=== PATIENT | female | born 1950 | race Caucasian/White ===

== ENCOUNTER 2021-03-05 06:12 | Inpatient (IN) ==
--- NOTE | 2020-11-12 15:50 | PAT Medication Instructions ---
Medication Instructions Date of Service November 12, 2020 Home Medications albuterol sulfate 90 mcg/actuation aerosol inhaler 1 inh INHALATION QID PRN atorvastatin 10 mg tablet 10 mg PO QPM biotin 1 mg capsule 1 mg PO QAM calcium 500 mg tablet 500 mg PO QAM metformin 500 mg tablet 500 mg PO QAM omega-3 fatty acids 1,000 mg PO QAM omeprazole 20 mg tablet,delayed release 20 mg PO QAM STOP taking 2 weeks before surgery biotin 1 mg capsule 1 mg PO QAM omega-3 fatty acids 1,000 mg PO QAM DO NOT take the morning of surgery calcium 500 mg tablet 500 mg PO QAM metformin 500 mg tablet 500 mg PO QAM Take morning of surgery With a small sip of water, OTHERWISE NOTHING TO EAT OR DRINK AFTER MIDNIGHT: albuterol sulfate 90 mcg/actuation aerosol inhaler 1 inh INHALATION QID PRN (use if needed; please bring with you to hospital day of surgery if possible) omeprazole 20 mg tablet,delayed release 20 mg PO QAM Take evening before surgery albuterol sulfate 90 mcg/actuation aerosol inhaler 1 inh INHALATION QID PRN (if needed) atorvastatin 10 mg tablet 10 mg PO QPM Other Notes If you have any questions please call us at [phone] or [phone] or [phone] or [phone]
--- NOTE | 2020-11-14 10:53 | Anesthesiology Consultation ---
Date of Service November 14, 2020 Assessment & Plan (1) Encounter for pre-operative examination: Chart Review Chart Review: Acceptable Risk for Surgery (pending preop Covid testing results ) and Patient seen in Pre Admission Testing - Check BSG AM DOS Per PAT appt on 11/14/20, patient denies any recent travel or large group activities. No known Covid positive contacts or Covid related symptoms. No known Covid infection in the past 90 days. Pt is vaccinated for Covid. Preop Covid testing scheduled 12/03/20= will await results. Educated on importance of self quarantining, social distancing and wearing mask in public for the patient one week prior to surgery and after Covid testing done Teaching & Discussion Pre-Anesthesia Teaching/Discussion Notes: Instructed NPO after midnight before surgery,except medications with 15 cc of water. Medication instructions provided according to the PAT guidelines. History Surgery Operation Date: 12/05/20 07:45 Proposed Procedures p L2-L3 Decompression Fusion, L3-L4 Hardware Removal Spinal Cord Monitoring - Gr barron Chase, Height/Weight Height: 5 ft 4 in Weight: 85.2 kg Allergies Allergy/AdvReac Type Severity Reaction Status Date / Time bee venom protein (honey bee) Allergy Unknown Rash and Verified 11/14/20 10:55 swelling Sulfa (Sulfonamide Allergy Unknown HIVES Verified 10/28/20 12:19 Antibiotics) Medications Home Medications Medication Instructions Recorded Confirmed Last Taken albuterol sulfate 90 mcg/actuation 1 inh INHALATION QID PRN 10/28/20 10/28/20 Unknown aerosol inhaler atorvastatin 10 mg tablet 10 mg PO QPM 10/28/20 10/28/20 Unknown biotin 1 mg capsule 1 mg PO QAM 10/28/20 10/28/20 Unknown calcium 500 mg tablet 500 mg PO QAM 10/28/20 10/28/20 Unknown metformin 500 mg tablet 500 mg PO QAM 10/28/20 10/28/20 Unknown omega-3 fatty acids 1,000 mg PO QAM 10/28/20 10/28/20 Unknown omeprazole 20 mg tablet,delayed 20 mg PO QAM 10/28/20 10/28/20 Unknown release Past Medical History Medical History (Updated 11/14/20 @ 11:09 by Deana Hutchins PA-C) Chronic cough Usually in winter Has albuterol inhaler PRN when sick DM type 2 (diabetes mellitus, type 2) Glucose stable Hgb A1C 6.9 on 11/11/20 GERD (gastroesophageal reflux disease) Well controlled and stable HLD (hyperlipidemia) Spinal stenosis Exercise / Class Metabolic Activity II 4-5 Yardwork/Stairs/Walk up hill (one flight of stairs - no chest pain or SOB ) Past Family History Family History Other No family history of adverse response to anesthesia Past Surgical History Surgical History History of cataract surgery History of colonoscopy History of hernia repair History of tubal ligation Previous back surgery x 3 Past Anesthesia History No Hx of Anesthesia Complications and No Family Hx of Anesthesia Complications History of PONV No Hx of PONV and No Hx of Motion Sickness Social History Smoking Status: Former smoker Do You Dip or Chew Tobacco: No Smoking End Date: 40-50 years ago Hx Alcohol Use: Yes alcohol intake frequency: holidays/special occasions only Hx Substance Use: No substance use type: does not use Review of Systems Patient denies chest pain, shortness of breath, dyspnea on exertion, cough, wheezing, palpitations. No hx of seizures, stroke, ID, apnea/snoring. No hx of blood clots or blood transfusions Physical Exam Vital Signs VITALS BP 138/74 P 58 TEMP 97.8 SP02 97% RESP 16 Constitutional no acute distress ENMT Mouth: no TMJ clicking Thyromental Distance: < 3.5 Finger Breadths (3.0) Mallampati Class: III Cap on side teeth Neck + limited neck extension (minimal ) Respiratory normal respiratory effort; no respiratory distress Auscultation: lungs clear to auscultation bilaterally; no wheezes Cardiovascular Rate/Rhythm: regular rate and regular rhythm Heart Sounds: no murmur Vessels: no carotid bruit Musculoskeletal Spine: no pain with cervical ROM Extremities: extremities normal to inspection Psychiatric Orientation: alert Lab Results Anesthesia Preop Results Results Anesthesia Widget: WBC 8.01 K/uL (4.8-10.8) 11/14/20 Hgb 15.0 g/dL (12.0-16.0) 11/14/20 Hct 45.2 % (37-47) 11/14/20 Plt 200 K/uL (130-400) 11/14/20 Na 140 mmol/L (136-145) 11/14/20 K 4.3 mmol/L (3.5-5.1) 11/14/20 Cl 107 mmol/L (98-107) 11/14/20 CO2 30 mmol/L (21-32) 11/14/20 BUN 12 mg/dl (7-18) 11/14/20 Creat 0.85 mg/dl (0.6-1.2) 11/14/20 Glucose Level 159 mg/dl (70-99) H 11/14/20 PT 10.4 Seconds (9.0-12.0) 11/14/20 PTT 26.8 Seconds (21.0-31.0) 11/14/20 INR 1.0 (0.9-1.1) 11/14/20 Urine Color Yellow 11/14/20 Urine Appearance Clear (Clear) 11/14/20 Urine pH 6.0 (4.5-7.5) 11/14/20 Urine Specific [place] 1.016 (1.000-1.030) 11/14/20 Urine Protein Negative (Negative) 11/14/20 Urine Glucose (UA) Negative (Negative) 11/14/20 Urine Ketones Negative (Negative) 11/14/20 Urine Blood Negative (Negative) 11/14/20 Urine Nitrite Negative (Negative) 11/14/20 Urine Bilirubin Negative (Negative) 11/14/20 Urine Urobilinogen Negative (Negative) 11/14/20 Urine Leukocyte Esterase Negative (Negative) 11/14/20 Blood Type O Positive 11/14/20 Antibody Screen NEGATIVE 11/14/20 Testing Laboratory Results 11/11/20= HGB A1C: 6.9 Electrocardiogram Date: 11/14/20 Findings: + NSR @ (67bpm) Normal EKG per cardio Chest X-Ray Date: 11/14/20 Findings: + NAD
--- NOTE | 2021-03-04 16:13 | Anesthesiology Consultation ---
Date of Service March 04, 2021 Assessment & Plan (1) Encounter for pre-operative examination: Chart Review Chart Review: Acceptable Risk for Surgery History Surgery Operation Date: 12/05/20 07:45 Proposed Procedures p L2-L3 Decompression Fusion, L3-L4 Hardware Removal Spinal Cord Monitoring - Kaleb Chase DO Operation Date: 01/09/21 12:40 Proposed Procedures p L2-L3 Decompression Fusion, L3-L4 Hardware Removal; SPINAL CORD MONITORING - Kaleb Chase DO Operation Date: 03/05/21 07:45 Proposed Procedures p L2-L3 Decompression Fusion, L3-L4 Hardware Removal, Spinal Cord Monitoring - Kaleb Chase DO Height/Weight Height: 5 ft 4 in Weight: 85.2 kg Allergies Allergy/AdvReac Type Severity Reaction Status Date / Time doxycycline Allergy Mild Hives Verified 01/29/21 10:02 bee venom protein (honey bee) Allergy Unknown Rash and Verified 11/14/20 10:55 swelling Sulfa (Sulfonamide Allergy Unknown HIVES Verified 10/28/20 12:19 Antibiotics) Medications Home Medications Medication Instructions Recorded Confirmed Last Taken albuterol sulfate 90 mcg/actuation 1 inh INHALATION QID PRN 10/28/20 01/29/21 Unknown aerosol inhaler atorvastatin 10 mg tablet 10 mg PO QPM 10/28/20 01/29/21 Unknown biotin 1 mg capsule 1 mg PO QAM 10/28/20 01/29/21 Unknown calcium 500 mg tablet 500 mg PO QAM 10/28/20 01/29/21 Unknown metformin 500 mg tablet 500 mg PO QAM 10/28/20 01/29/21 Unknown omega-3 fatty acids 1,000 mg PO QAM 10/28/20 01/29/21 Unknown omeprazole 20 mg tablet,delayed 20 mg PO QAM 10/28/20 01/29/21 Unknown release oxycodone-acetaminophen 5 mg-325 1 tab PO Q8H PRN #14 tab 02/15/21 Unknown mg tablet (Percocet) Past Medical History Medical History Bronchitis end of december 2020 had bronchitis COVID was neg and was on inhaler and steroid. since then she has finished and no current issues Chronic cough Usually in winter Has albuterol inhaler PRN when sick DM type 2 (diabetes mellitus, type 2) Glucose stable Hgb A1C 6.9 on 11/11/20 GERD (gastroesophageal reflux disease) Well controlled and stable HLD (hyperlipidemia) Spinal stenosis Past Family History Family History Other No family history of adverse response to anesthesia Past Surgical History Surgical History History of cataract surgery History of colonoscopy History of hernia repair History of tubal ligation Previous back surgery x 3 Social History Smoking Status: Never smoker Do You Dip or Chew Tobacco: No Smoking End Date: 40-50 years ago Hx Alcohol Use: Yes alcohol intake frequency: holidays/special occasions only Hx Substance Use: No substance use type: does not use Lab Results Anesthesia Preop Results Results Lab Comments: Laboratory Tests 11/14/20 11/14/20 11:12 11:12 Hgb 15.0 Plt Count 200 Potassium 4.3 Creatinine 0.85 Testing Electrocardiogram Date: 11/14/20 Findings: + NSR @ (09)
[~2021-03-05 06:12] MED LIST: ACETAMINOPHEN 500 MG TAB PO SCH; GABAPENTIN 300 MG CAP PO SCH; LR 15ML/HR IV SCH; ceFAZolin 2000MG 2,000 MG/15 ML SYR IV SCH
[2021-03-05] MEDS: CeleBREX 200 MG CAP PO SCH ×2 (06:47→07:02)
[2021-03-05] MEDS ORDERED: ROCURONIUM BROMIDE 10 MG/ML 5 ML VIAL IV ONE ×3 (06:48→12:37)
[2021-03-05] MEDS ORDERED: PROPOFOL IV EMULSION 10 MG/ML 20 ML VIAL IV ONE (06:48)
[2021-03-05] MEDS ORDERED: MIDAZOLAM HCL 1 MG/ML 2ML VIAL ONE (06:48)
[2021-03-05] MEDS ORDERED: LIDOCAINE 2% 2 ML VIAL/AMP(20MG/ML) INFIL ONE (06:48)
[2021-03-05] MEDS ORDERED: fentaNYL citrate 100 MCG/2 ML VIAL ONE ×2 (06:48→08:06)
[2021-03-05] MEDS ORDERED: ONDANSETRON INJ 2 MG/ML 2 ML VIAL ONE (06:48)
[2021-03-05] MEDS ORDERED: DEXAMETHASONE SOD INJ 4 MG/ML VIAL ONE (06:48)
[2021-03-05] MEDS ORDERED: HYDROmorphone INJ 1 MG/ML SYRINGE IV PRN ×2 (06:53→14:22)
[2021-03-05] MEDS ORDERED: ePHEDrine sulfate 50 MG/ML AMP IV PRN (06:53)
[2021-03-05] MEDS ORDERED: fentaNYL citrate 100 MCG/2 ML VIAL IV PRN (06:53)
[2021-03-05] MEDS ORDERED: ATROPINE SULFATE 0.1 MG/ML 10ML SYR IV PRN (06:53)
[2021-03-05] MEDS ORDERED: ONDANSETRON INJ 2 MG/ML 2 ML VIAL IV PRN ×2 (06:53→14:22)
[2021-03-05] MEDS ORDERED: EPINEPHrine INJ 1 MG/ML AMP ONE (07:01)
[2021-03-05] MEDS ORDERED: ceFAZolin 330 MG/ML 1 GM VIAL ONE (07:02)
[2021-03-05] MEDS ORDERED: BUPIVACAINE 0.5 % 5 MG/1 ML MPF 30ML VIAL ONE (07:02)
[2021-03-05] MEDS ORDERED: GLYCOPYRROLATE 0.2 MG/ML VIAL ONE ×2 (07:05→11:13)
[2021-03-05] MEDS ORDERED: KETAMINE 50 MG/5 ML SYRINGE ONE ×2 (07:05→11:15)
--- NOTE | 2021-03-05 07:27 | History & Physical Bridge Note ---
Date of Service March 05, 2021 History & Physical Bridge Note I have examined the patient, reviewed the History & Physical and in the interval since the performance of the History & Physical I have noted the following changes of clinical significance: no changes noted
--- NOTE | 2021-03-05 07:28 | History & Physical Report ---
Date of Service March 05, 2021 Assessment & Plan (1) Neurogenic claudication due to lumbar spinal stenosis: Plan: L2-L3 decompression fusion, L3-L4 hardware removal History of Present Illness Chief Complaint: Back and leg pain Primary Care Provider: Jose Israel MD This is a 70-year-old female known to me the presents with worsening persistent back and right greater than left leg pain. After failing course of nonoperative care she is here for surgical intervention. Allergies Allergy/AdvReac Type Severity Reaction Status Date / Time doxycycline Allergy Mild Hives Verified 03/05/21 06:40 bee venom protein (honey bee) Allergy Unknown Rash and Verified 03/05/21 06:40 swelling Sulfa (Sulfonamide Allergy Unknown HIVES Verified 03/05/21 06:40 Antibiotics) Home Medications Medication Instructions Recorded Confirmed Type albuterol sulfate 90 mcg/actuation 1 inh INHALATION QID PRN 10/28/20 03/05/21 History aerosol inhaler atorvastatin 10 mg tablet 10 mg PO QPM 10/28/20 03/05/21 History biotin 1 mg capsule 1 mg PO QAM 10/28/20 03/05/21 History calcium 500 mg tablet 500 mg PO QAM 10/28/20 03/05/21 History metformin 500 mg tablet 500 mg PO QAM 10/28/20 03/05/21 History omega-3 fatty acids 1,000 mg PO QAM 10/28/20 03/05/21 History omeprazole 20 mg tablet,delayed 20 mg PO QAM 10/28/20 03/05/21 History release oxycodone-acetaminophen 5 mg-325 1 tab PO Q8H PRN #14 tab 02/15/21 03/05/21 Rx mg tablet (Percocet) Past Med/Surg History Medical History Bronchitis end of december 2020 had bronchitis COVID was neg and was on inhaler and steroid. since then she has finished and no current issues Chronic cough Usually in winter Has albuterol inhaler PRN when sick DM type 2 (diabetes mellitus, type 2) Glucose stable Hgb A1C 6.9 on 11/11/20 GERD (gastroesophageal reflux disease) Well controlled and stable HLD (hyperlipidemia) Spinal stenosis Surgical History History of cataract surgery History of colonoscopy History of hernia repair History of tubal ligation Previous back surgery x 3 Family History Other No family history of adverse response to anesthesia Social History Smoking Status: Never smoker Smoking End Date: 40-50 years ago; Second Hand Exposure: No; Do You Dip or Chew Tobacco: No; Tobacco Cessation Education Requested by Patient: No Hx Alcohol Use: Yes Hx Substance Use: No Preferred Language: [place]an Communication Ability: Effective Cardiology Nurse Required: No Beliefs That Will Affect Care: None Current Living Situation: Spouse Other Information That Helps Us Care for You: No Feels Safe at Home: Yes Safety Concerns: Feels Safe At This Time Assistive Devices: None Physical Exam Physical Exam: Patient is alert and oriented Heart regular in rhythm Lungs clear Results & Data ([place]) Vital Signs (Past 12 Hours) Vital Signs Temp Pulse Resp BP Pulse Ox 03/05/21 06:37 37 C 73 20 149/72 H 96
[2021-03-05] MEDS ORDERED: FLOSEAL HEMOSTATIC MATRIX 10ML TOP ONE (08:30)
[2021-03-05] MEDS ORDERED: NEOSTIGMINE METHYLSULFATE 1 MG/ML 10ML VIAL ONE (09:35)
--- NOTE | 2021-03-05 09:38 | Operative Report ---
Post Operative Report Pre & Post Diagnosis Operation Date: 12/05/20 07:45 <No data on this case meets the specified criteria> Operation Date: 01/09/21 12:40 <No data on this case meets the specified criteria> Operation Date: 03/05/21 07:45 Pre-Op Diagnosis: Lumbar Spinal Stenosis, Neuogenic Claudication Post-Op Diagnosis: Lumbar Spinal Stenosis, Neuogenic Claudication I identified the patient and participated in the time-out.: Yes Procedure Operation Date: 12/05/20 07:45 <No data on this case meets the specified criteria> Operation Date: 01/09/21 12:40 <No data on this case meets the specified criteria> Operation Date: 03/05/21 07:45 Actual Procedures #1 Removal of posterior instrumentation L3-L4. #2 exploration of fusion L3-L4. #3 lumbar decompression with bilateral medial facetectomies and foraminotomies L1-L2 L2-L3. #4 posterior spinal fusion L2-L3. #5 placement posterior instrumentation L2-L3. #6 interbody fusion L2-L3. #7 placement of peek cage 13 x 22 mm at L2-L3. #8 placement locally harvested morselized autograft in the p osterior gutters. #9 placement infuse collagen sponge, master graft in the posterior lateral gutters and I factor interbody space. Surgeon Kaleb Chase, DO Quality Audit Representative Dakota Sam Estimated Blood Loss 100 Findings See Below The patient is 5 foot 4 inches tall weighing over 85 kg with a BMI in excess of 32. The patient's body habitus did contribute to significant technical difficulty requiring her deepest retractors longus instruments in order to perform her procedure. This had at least 50% increased operative time. Specimens None Indications This is a 70-year-old female that has severe spinal stenosis marked decline in neurologic status and here for the above-mentioned procedure. Description of Procedure Patient was met with identified informed consent obtained. Patient was then taken to the operative suite underwent a patient placed in a prone position Joel table top Amadeo frame. All bony prominences well-padded eyes inspected to ensure no external pressure placed upon the. This point the lumbar spine was prepped and draped in the normal sterile fashion. Sharp dissection with the assistance of Bovie cautery performed down to and exposing the lamina and transverse processes of L2 and instrumentation at L3-L4 bilaterally. I then proceeded move the hardware bilaterally noting it there retained at the left L4 pedicle screw is it was completely ensconced in bone and elected not to remove the secondary to the excess blood loss. Then performed a complete laminectomy of L2 partial laminectomy L1 including bilateral facetectomies and foraminotomies addressing severe spinal stenosis. Pedicle screws were then placed in L2 and L3 bilaterally with assistance of fluoroscopy and appropriate sized robert placed. By way of a transforaminal approach on the left complete discectomy was performed endplates curetted to subcortically bone and a 13 x 22 mm peek cage filled I factor tapped in position. The rods were then compressed locked into final position bilaterally. The transverse processes of L2 and L3 burred to subcortical bleeding bone. Infuse collagen sponge mass graft local graft was placed in the posterior gutters. 15 round PANFILO drain inserted. The incision was then closed with 1 Vicryl to fascia 2-0 Vicryl subcutaneously and 4 Monocryl for final skin closure. Steri-Strip sterile dressings placed. Patient will continue PACU stable condition. Please note spinal cord monitoring was utilized at the procedure no changes noted. Lastly Dakota Sam was present at the entire surgery and while the patient positioning complex portions of the surgery and final skin closure. I attest to the content of the Intraoperative Record and any orders documented therein. Any exceptions are noted below.
--- NOTE | 2021-03-05 10:06 | Fluoroscopy Report ---
FL lumbar spine 2-3V CLINICAL HISTORY: L3-4 REMOVE HARDWARE/L2-3 DECOMPRESSION/FUSION/INTERBODY COMPARISON STUDY: Lumbar spine fluoroscopic images February 03, 2010. FLUOROSCOPY TIME: 10 seconds. FLUOROSCOPIC IMAGES: 2 FINDINGS: Note is made of previous L3-L4 and L4-L5 discectomies with interbody spacer placement. Inte rval hardware removal is noted. Left L4 pedicle screw remains in place. Interval L2-L3 discectomy wit h interbody spacer placement as noted. Posterior decompression is noted with bilateral pedicle screws at the L2 and L3 levels. IMPRESSION: 1. Fluoroscopy provided during L2-L3 discectomy, posterior decompression and bilateral pedicle screw fusion. 2. Interval hardware removal. Left L4 pedicle screw remains in place. ACT 112: Negative or not required by law. Electronically signed by: Tae Boyd M.D. 03/05/2021 10:04 AM
--- NOTE | 2021-03-05 10:33 | Anesthesiology Progress Note ---
Date of Service March 05, 2021 Anesthesia Post Procedure Vital Signs Vital Signs: Temp Pulse Pulse Resp BP Pulse Ox 03/05/21 10:30 77 13 161/80 H 98 03/05/21 10:20 85 12 166/79 H 100 03/05/21 10:15 145/78 H 03/05/21 10:10 88 14 161/78 H 99 03/05/21 10:00 97.3 F L 92 H 19 171/82 H 97 03/05/21 06:37 98.6 F 73 20 149/72 H 96 Transfer of Care Handoff Completed per policy Notes Mental Status: alert / awake / arousable and participated in evaluation Patient Amnestic to Procedure: Yes Nausea / Vomiting: adequately controlled Pain: adequately controlled Airway Patency, RR, SpO2: stable & adequate BP & HR: stable & adequate Hydration State: stable & adequate Anesthetic Complications: no major complications apparent and Pt Satisfied with anesthetic care
[2021-03-05] MEDS ORDERED: HYDROmorphone INJ 0.5 MG/0.5 ML SYR IV PRN (14:22)
[2021-03-05] MEDS ORDERED: ONDANSETRON 4 MG OD TAB PO PRN (14:22)
[2021-03-05] MEDS ORDERED: MAGNESIUM HYDROXIDE SUSP 30 ML UDC PO PRN (14:22)
[2021-03-05] MEDS ORDERED: NALOXONE HCL 0.4 MG/1 ML VIAL/CARP IV PRN (14:22)
[2021-03-05] MEDS ORDERED: LORazepam 0.5 MG/1 ML VIAL IV PRN (14:22)
[2021-03-05] MEDS ORDERED: ALBUTEROL HFA 8 GM INHALER INH PRN (14:22)
[2021-03-05] MEDS ORDERED: traMADol HCL 50 MG TABLET PO PRN (14:22)
[2021-03-05] MEDS ORDERED: DO NOT ADMINISTER PNEUMOCOCCAL VACCINE PRN (14:22)
[2021-03-05] MEDS ORDERED: diphenhydrAMINE Capsule 25 MG CAP PO PRN (14:22)
[2021-03-05] MEDS ORDERED: hydrOXYzine HCl 25 MG TAB PO PRN (14:22)
[2021-03-05] MEDS ORDERED: ACETAMINOPHEN 500 MG TAB PO PRN (14:22)
[2021-03-05] MEDS ORDERED: SOD PHOSPHATE/SOD BIPHOSPHATE ENEMA 132 ML BTL PR PRN (14:22)
[2021-03-05] MEDS ORDERED: DO NOT ADMINISTER FLU VACCINE PRN (14:22)
[2021-03-05] MEDS ORDERED: METOCLOPRAMIDE HCL INJ 5 MG/ML 2 ML VIAL IV PRN (14:22)
[2021-03-05] MEDS ORDERED: LORazepam 0.5 MG TAB PO PRN (14:22)
[2021-03-05] MEDS ORDERED: PROMETHAZINE HCL 12.5 MG in SODIUM CHLORIDE 0.9% 50 ML IV PRN (14:22)
[2021-03-05] MEDS ORDERED: oxyCODONE HCL IR 5 MG TAB (IMMEDIATE RELEASE) PO PRN (14:22)
[2021-03-05] MEDS ORDERED: ALUMINUM/MAGNESIUM SUSP 30 ML UDC PO PRN (14:22)
[2021-03-05] MEDS ORDERED: PHARMACY GLYCEMIC MGMT CONSULT PRN (14:22)
[2021-03-05] MEDS ORDERED: bisacodyL 10 MG SUPP PR PRN (14:22)
[2021-03-05] MEDS ORDERED: ACETAMINOPHEN 1,000 MG/100 ML VIAL IV PRN (14:22)
[2021-03-05] MEDS ORDERED: FAMOTIDINE 20 MG TAB PO PRN (14:22)
--- NOTE | 2021-03-05 15:00 | Pharmacy Report ---
Pharmacy Glycemic Short Note 2 - Date of Service March 05, 2021 - Glycemic Short BSG Results (Last 24 hours): 03/05/21 03/05/21 03/05/21 06:53 10:09 12:52 POC Glucose 155 H 172 H 202 H OUTPATIENT ANTIDIABETIC REGIMEN: * metformin 500 mg daily ASSESSMENT: * Ms Cintron is a 70 y/o F with a PMH of T2DM on one oral medication who presents for surgery due to spinal stenosis. * BSGs today were 155-172-202 mg/dL. * Patient received dexamethasone 8 mg intraoperatively. Dexamethasone 6 mg IV daily x 3 days is subsequently ordered. * Will start with NPH 30 units (0.4 units/kg) now plus Novolog weight-based s tress of 3. * Subsequent doses to be determine based upon BSGs. PLAN FOR INPATIENT GLYCEMIC CONTROL: * Hold outpatient oral diabetes medications * Basal insulin * NPH 30 units SQ x 1 * Bolus insulin * NovoLog per scale ACHS or Q6hrs while NPO * Goal Range: Low 110 mg/dL - High 140 mg/dL * Correction Factor: 20 mg/dL/unit * Nutritional / Prandial insulin per carb ratio of 1 unit per 6 grams CHO consumed PLAN FOR DISCHARGE: * TBD HbA1C ordered
[2021-03-05] MEDS: SODIUM CHLORIDE 0.9% 1000ML 1,000 ML IV SCH (15:10)
[2021-03-05] MEDS ORDERED: INSULIN HUMAN NPH SC ONE (15:15)
--- NOTE | 2021-03-05 15:26 | Hospitalist Consultation ---
Date of Consultation March 05, 2021 Assessment & Plan (1) Neurogenic claudication due to lumbar spinal stenosis: - POD#0 L2-L3 decompression fusion, L3-L4 hardware removal by Dr. Chase - activity and wound care orders as per ortho - pain control with bowel regimen - PT/OT - monitor H/H for acute blood loss anemia and transfuse blood products PRN -EBL 100 cc (2) DM type 2 (diabetes mellitus, type 2): -Hgb A1c 6.9 10/2020 -Hold oral agents while hospitalized -Glycemic pharmacy consulted by Ortho (3) Asthma: -No signs of acute exacerbation -Continue home inhalers (4) DVT prophylaxis: -TEDs/SCDs as per spine Ortho Thank you for this consultation. We will follow the patient with you during their hospital stay. You can reach a member of the [facility] Hospitalist Team 04/10 via the [facility] Hospitalist role in [place] Text. Supervising Physician Co-Signing Physician Notes History and physical exam performed by me Agree with findings and plans as detailed by Anna URRUTIA History of Present Illness Reason for Consultation: Postop medical management Requesting Physician: Dr. Chase Attending Physician: Dr. Jimenes History of Present Illness 70-year-old female with PMH DM type II, dyslipidemia, asthma, GERD, other problems listed below who is s/p L2-L3 decompression fusion and L3-L4 hardware removal today by Dr. Chase. Postoperatively, the patient is doing well. She reports minimal surgical site discomfort. No lower extremity weakness, numbness, tingling. She denies chest pain or shortness of breath. No lightheadedness or dizziness. Denies abdominal pain and nausea. Ang catheter is in place draining yellow urine. Allergies Allergy/AdvReac Type Severity Reaction Status Date / Time doxycycline Allergy Mild Hives Verified 03/05/21 06:40 bee venom protein (honey bee) Allergy Unknown Rash and Verified 03/05/21 06:40 swelling Sulfa (Sulfonamide Allergy Unknown HIVES Verified 03/05/21 06:40 Antibiotics) Home Medications Medication Instructions Recorded Confirmed Type albuterol sulfate 90 mcg/actuation 1 inh INHALATION QID PRN 10/28/20 03/05/21 History aerosol inhaler atorvastatin 10 mg tablet 10 mg PO QPM 10/28/20 03/05/21 History biotin 1 mg capsule 1 mg PO QAM 10/28/20 03/05/21 History calcium 500 mg tablet 500 mg PO QAM 10/28/20 03/05/21 History metformin 500 mg tablet 500 mg PO QAM 10/28/20 03/05/21 History omega-3 fatty acids 1,000 mg PO QAM 10/28/20 03/05/21 History omeprazole 20 mg tablet,delayed 20 mg PO QAM 10/28/20 03/05/21 History release oxycodone-acetaminophen 5 mg-325 1 tab PO Q8H PRN #14 tab 02/15/21 03/05/21 Rx mg tablet (Percocet) fluticasone 100 mcg-salmeterol 50 1 inh INHALATION BID 03/05/21 03/05/21 History mcg/dose blistr powdr for inhalation (Wixela Inhub) oxycodone 5 mg tablet 5 mg PO Q6H PRN #30 tab 03/05/21 Rx tramadol 50 mg tablet 50 mg PO Q6H PRN #30 tab 03/05/21 Rx Patient History Medical History Asthma Bronchitis end of december 2020 had bronchitis COVID was neg and was on inhaler and steroid. since then she has finished and no current issues Chronic cough Usually in winter Has albuterol inhaler PRN when sick DM type 2 (diabetes mellitus, type 2) Glucose stable Hgb A1C 6.9 on 11/11/20 GERD (gastroesophageal reflux disease) Well controlled and stable HLD (hyperlipidemia) Spinal stenosis Surgical History History of cataract surgery History of colonoscopy History of hernia repair History of tubal ligation Previous back surgery x 3 Family History Father Diabetes Mother Diabetes Other No family history of adverse response to anesthesia Social History Smoking Status: Never smoker Smoking End Date: 40-50 years ago; Second Hand Exposure: No; Do You Dip or Chew Tobacco: No; Tobacco Cessation Education Requested by Patient: No Hx Alcohol Use: Yes Hx Substance Use: No Preferred Language: Taiwanese Communication Ability: Effective Career Professional Required: No Beliefs That Will Affect Care: None Current Living Situation: Spouse Other Information That Helps Us Care for You: No Feels Safe at Home: Yes Safety Concerns: Feels Safe At This Time Assistive Devices: None Review of Systems Review of Systems: ROS per HPI, all other systems reviewed and negative Physical Exam Constitutional: WD/WN, vitals as above Eyes: PERRL, conjunctivae normal, anicteric sclerae ENMT: external ear and nose normal, oropharynx normal Respiratory: normal respiratory effort, lungs clear to auscultation Cardiovascular: Rate/Rhythm: regular rate and regular rhythm Vessels: normal peripheral pulses Extremities: no edema Gastrointestinal (Abdomen): normal bowel sounds, soft, nontender, no hepatosplenomegaly Musculoskeletal: no cyanosis or clubbing, extremities motor strength 5/5 S/p back surgery, drain in place draining bloody drainage, pedal pushes and pull strong bilaterally Skin: no rashes, warm and dry Neurologic: PERRL, EOMI, accommodation nl, no face palsy, no dysarthria Psychiatric: A+Ox3, euthymic affect Results & Data Results & Data ([facility]) Vital Signs (Past 12 Hours) Vital Signs Temp Pulse Pulse Resp BP Pulse Ox 03/05/21 15:00 37 C 87 16 109/59 L 93 03/05/21 14:26 36.6 C 90 16 145/64 H 92 03/05/21 14:00 37.4 C 93 H 18 134/65 95 03/05/21 13:45 80 13 122/64 94 03/05/21 13:30 86 14 118/63 94 03/05/21 13:15 76 12 122/70 94 03/05/21 13:00 79 15 137/74 94 03/05/21 12:45 37 C 76 14 131/53 L 95 03/05/21 12:15 88 16 136/74 95 03/05/21 12:00 86 16 137/70 95 03/05/21 11:45 79 12 129/70 96 03/05/21 11:30 84 12 138/71 96 03/05/21 11:15 82 14 154/80 H 96 03/05/21 11:10 78 14 154/80 H 97 03/05/21 10:55 74 12 155/85 H 97 03/05/21 10:40 36.3 C L 77 12 162/82 H 95 03/05/21 10:30 77 13 161/80 H 98 03/05/21 10:20 85 12 166/79 H 100 03/05/21 10:15 145/78 H 03/05/21 10:10 88 14 161/78 H 99 03/05/21 10:00 36.3 C L 92 H 19 171/82 H 97 03/05/21 06:37 37 C 73 20 149/72 H 96
[2021-03-05] MEDS: ceFAZolin 2000MG 2,000 MG/15 ML SYR IV SCH (16:17)
[2021-03-05] MEDS ORDERED: INSULIN ASPART PER UNIT SC SCH (16:30)
[2021-03-05] MEDS: INSULIN ASPART PER UNIT SC SCH ×2 (17:54→21:29)
[2021-03-05] MEDS: FLUTICASONE/VILANTEROL 100/25MCG 14 PUFFS/INHALER INH SCH (21:26)
[2021-03-05] MEDS: ATORVASTATIN 10 MG TAB PO SCH (21:27)
[2021-03-05] MEDS: DOCUSATE SODIUM/SENNA 50/8.6MG TAB PO SCH (21:30)
[2021-03-06] MEDS: ceFAZolin 2000MG 2,000 MG/15 ML SYR IV SCH (00:01)
[2021-03-06] MEDS: SODIUM CHLORIDE 0.9% 1000ML 1,000 ML IV SCH (00:38)
[2021-03-06] MEDS: INSULIN ASPART PER UNIT SC SCH ×6 (03:52→21:17)
[2021-03-06] MEDS: POLYETHYLENE (MIRALAX) 17 GM PACK PO SCH ×4 (06:11→23:56)
[2021-03-06 06:58] LABS: Basophils # (auto) 0.02 K/uL (0-0.2); Basophils % (auto) 0.1 %; Eosinophils # (auto) 0.01 K/uL (0-0.5); Eosinophils % (auto) 0.1 %; Hematocrit (blood only) 40.4 % (37-47); Hemoglobin 13.2 g/dL (12.0-16.0); Immature Granulocytes # (auto) 0.07 K/uL (0.00-0.02); Immature Granulocytes % (auto) 0.4 %; Lymphocytes # (auto) 1.93 K/uL (1.2-3.4); Lymphocytes % (auto) 11.3 %; Mean Corpuscular Hemoglobin 30.6 pg (25-34); Mean Corpuscular Hgb Conc 32.7 g/dL (32-36); Mean Corpuscular Volume 93.5 fL (80-100); Mean Platelet Volume 12.3 fL (7.4-10.4); Monocytes # (auto) 1.53 K/uL (0.11-0.59); Monocytes % (auto) 8.9 %; Neutrophils # (auto) 13.57 K/uL (1.4-6.5); Neutrophils % (auto) 79.2 %; Platelet Count 227 K/uL (130-400); RDW Coefficient of Variation 12.8 % (11.5-14.5); RDW Standard Deviation 44.1 fL (36.4-46.3); Red Blood Count 4.32 M/uL (4.2-5.4); White Blood Count 17.13 K/uL (4.8-10.8)
[2021-03-06 07:33] LABS: BUN Creatinine Ratio 16.9 (10-20); Est GFR (Non-African American) 69.9 ml/min; Potassium 3.8 mmol/L (3.5-5.1)
[2021-03-06 07:44] LABS: Estimated Average Glucose 177 mg/dl; Hemoglobin A1C 7.8 % (4.5-5.6)
[2021-03-06] MEDS ORDERED: NON-FORMULARY MEDICATION (Biotin 1 mg Capsule) PO SCH (09:00)
[2021-03-06] MEDS: PANTOprazole 40 MG TAB PO SCH (09:05)
[2021-03-06] MEDS: dexAMETHasone 6 MG in SYRINGE 0 ML IV SCH (09:05)
[2021-03-06] MEDS: CALCIUM CARBONATE 1250MG TAB PO SCH (09:05)
--- NOTE | 2021-03-06 12:59 | Pharmacy Report ---
Pharmacy Glycemic Short Note 2 - Date of Service March 06, 2021 - Glycemic Short BSG Results (Last 24 hours): 03/05/21 03/05/21 03/05/21 16:59 20:52 23:56 Glucose POC Glucose 261 H 233 H 169 H 03/06/21 03/06/21 03/06/21 03:49 06:36 12:44 Glucose 131 H POC Glucose 142 H 156 H OUTPATIENT ANTIDIABETIC REGIMEN: * metformin 500 mg daily ASSESSMENT: 03/06/21 * Patient's BSGs after surgery were 202-261 (may have eaten lunch that was not covered) - 233 mg/dL and overnight was 169-142 mg/dL. Fasting today was 156 mg/dL. Lunch was 156 mg/dL. * Patient's BSGs were over 180 mg/dL but NPH was not given until dinner. This was because consult not received until afternoon and patient not admitted to 3E until after 1500. * Once given NPH (0.4 units/kg), BSGs responded nicely. * Patient to received Dexamethasone for 3 days. * Continue regimen. * Add metformin back tomorrow. Background * Ms Cintron is a 70 y/o F with a PMH of T2DM on one oral medication who presents for surgery due to spinal stenosis. * BSGs today were 155-172-202 mg/dL. * Patient received dexamethasone 8 mg intraoperatively. Dexamethasone 6 mg IV daily x 3 days is subsequently ordered. * Will start with NPH 30 units (0.4 units/kg) now plus Novolog weight-based stress of 3. * Subsequent doses to be determine based upon BSGs. PLAN FOR INPATIENT GLYCEMIC CONTROL: * Hold outpatient oral diabetes medications - restart metformin 03/07/21 * Basal insulin * NPH 30 units SQ daily x 3 doses with dexamethasone * Bolus insulin * NovoLog per scale ACHS or Q6hrs while NPO * Goal Range: Low 110 mg/dL - High 140 mg/dL * Correction Factor: 20 mg/dL/unit * Nutritional / Prandial insulin per carb ratio of 1 unit per 6 grams CHO consumed PLAN FOR DISCHARGE: * HbA1C is elevated. * currently is 7.8% * Goal would be < 7.5% * Recommend titrating metformin upwards to 1000 mg PO BID to maximize benefits.
[2021-03-06] MEDS ORDERED: INSULIN HUMAN NPH SC ONE (13:15)
--- NOTE | 2021-03-06 13:15 | Hospitalist Progress Note ---
Date of Service March 06, 2021 Assessment & Plan (1) Neurogenic claudication due to lumbar spinal stenosis: Plan: - POD#1 L2-L3 decompression fusion, L3-L4 hardware removal by Dr. Chase - activity and wound care orders as per ortho - pain control with bowel regimen - PT/OT - monitor H/H for acute blood loss anemia and transfuse blood products PRN - EBL 100 cc, drain output 510 cc to date - Preop Hgb 15.0 --> 13.2 (2) DM type 2 (diabetes mellitus, type 2): Plan: -Hgb A1c 6.9 10/2020 --> 7.8 -Hold oral agents while hospitalized -Due to increased A1c, recommend increasing Metformin to 500 mg twice daily at discharge. Will arrange for follow-up with PCP in 2 to 3 weeks. -Glycemic pharmacy consulted by Ortho (3) Asthma: Plan: -No signs of acute exacerbation -Continue home inhalers (4) DVT prophylaxis: Plan: -TEDs/SCDs as per spine Ortho Thank you for this consultation. We will follow the patient with you during their hospital stay. You can reach a member of the [facility] Hospitalist Team 04/10 via the [facility] Hospitalist role in [place] Text. Admission and Anticipated Discharge Date Admission Date: March 05, 2021 Supervising Physician Co-Signing Physician Notes Patient seen and examined Agree with plans as detailed by Anna URRUTIA Subjective Patient seen and examined. Follow-up for medical management s/p back surgery. Sitting up in the chair, reports minimal pain. Denies numbness and tingling to lower extremities. Ang catheter removed this morning, urinating without difficulty. No abdominal pain or nausea. Passing flatus however no BM. Denies chest pain shortness of breath. No lightheadedness or dizziness. Review of Systems Review of Systems: ROS per HPI, all other systems reviewed and negative Physical Exam Constitutional: WD/WN, vitals as above no acute distress Sitting up in the chair Respiratory: normal respiratory effort, lungs clear to auscultation Cardiovascular: Rate/Rhythm: regular rate and regular rhythm Vessels: normal peripheral pulses Extremities: no edema Gastrointestinal (Abdomen): Percussion/Palpation: abdomen soft; abdomen nontender Musculoskeletal: no cyanosis or clubbing, extremities motor strength 5/5 S/p back surgery, surgical dressing stained however remains within outlined area, drain in place draining serosanguineous drainage, strength strong and equal BLE Skin: no rashes, warm and dry Neurologic: no focal motor deficits Psychiatric: A+Ox3, euthymic affect Results & Data Results & Data ([facility]) Vital Signs (Past 12 Hours) Vital Signs Temp Pulse Resp BP Pulse Ox 03/06/21 08:38 36.8 C 66 17 128/73 99 03/06/21 02:15 37.1 C 70 16 119/66 94 Laboratory Results Short CBC 03/06/21 Range/Units 06:36 WBC 17.13 H (4.8-10.8) K/uL Hgb 13.2 (12.0-16.0) g/dL Hct 40.4 (37-47) % Plt Count 227 (130-400) K/uL BMP 03/06/21 06:36 Sodium 139 Potassium 3.8 Chloride 107 Carbon Dioxide 27 BUN 14 Creatinine 0.85 Glucose 131 H Calcium 9.0
[2021-03-06] MEDS: DOCUSATE SODIUM/SENNA 50/8.6MG TAB PO SCH (21:09)
[2021-03-06] MEDS: ATORVASTATIN 10 MG TAB PO SCH (21:09)
[2021-03-06] MEDS: FLUTICASONE/VILANTEROL 100/25MCG 14 PUFFS/INHALER INH SCH (21:11)
[2021-03-07] MEDS: POLYETHYLENE (MIRALAX) 17 GM PACK PO SCH ×2 (05:25→13:04)
[2021-03-07 07:42] LABS: Hematocrit (blood only) 38.8 % (37-47); Hemoglobin 12.8 g/dL (12.0-16.0)
[2021-03-07] MEDS: CALCIUM CARBONATE 1250MG TAB PO SCH (08:42)
[2021-03-07] MEDS: PANTOprazole 40 MG TAB PO SCH (08:42)
[2021-03-07] MEDS: dexAMETHasone 6 MG in SYRINGE 0 ML IV SCH (08:42)
[2021-03-07] MEDS: INSULIN ASPART PER UNIT SC SCH ×2 (08:43→13:05)
[2021-03-07] MEDS ORDERED: metFORMIN HCL 500 MG TAB PO SCH (09:00)
[2021-03-07] MEDS ORDERED: INSULIN HUMAN NPH SC SCH (09:00)
--- NOTE | 2021-03-07 10:34 | Discharge Summary ---
Date of Service March 07, 2021 Admission HPI Per Admitting Provider This is a 70-year-old female known to me the presents with worsening persistent back and right greater than left leg pain. After failing course of nonoperative care she is here for surgical intervention. Principal Diagnosis Lumbar spinal stenosis with neurogenic claudication Discharge Data Allergies Allergy/AdvReac Type Severity Reaction Status Date / Time doxycycline Allergy Mild Hives Verified 03/05/21 06:40 bee venom protein (honey bee) Allergy Unknown Rash and Verified 03/05/21 06:40 swelling Sulfa (Sulfonamide Allergy Unknown HIVES Verified 03/05/21 06:40 Antibiotics) Consultations 03/05/21 14:22 Consult Hospitalist Routine Procedures Performed Operation Date: 12/05/20 07:45 <No data on this case meets the specified criteria> Operation Date: 01/09/21 12:40 <No data on this case meets the specified criteria> Operation Date: 03/05/21 07:45 Actual Procedures p L2-L3 Decompression Fusion, Spinal Cord Monitoring(Not Applicable) - Kaleb Chase DO s L3-L4 Hardware Removal(Not Applicable) - Kaleb Chase DO Ordered Studies 03/05/21 09:35 FL lumbar spine 2-3V Routine Hospital Course (1) Neurogenic claudication due to lumbar spinal stenosis: Patient was admitted with significant back and bilateral leg pain underwent lumbar decompression fusion [facility] second orthopedic floor postoperative. Postop day 1 she was up and ambulating progressed appropriately postop day #2 PANFILO drain decreasing probably. Pain well controlled. Good strength testing. Subsequent discharge home. She was discharged home with her drain and will follow up in our office on Tuesday for dressing change and removal. Total Time Total Time Spent Total Time Spent (In Minutes): 20 minutes Discharge Plan Discharge Items Patient Disposition: Home - Self-Care Reason For Visit: Spinal Stenosis, Lumbar Region without Neurogenic Discharge Diagnosis: Lumbar spinal stenosis with neurogenic claudication Activity: As commented below Non-emergency contact: Primary Care Provider Call non-emergency contact if: you have any medication questions Follow-up/Referrals: Jose Israel MD [Primary Care Provider] - Diet: Regular Addtl Attending Provider Instructions: ACTIVITY RECOMMENDATIONS: SELF CARE INSTRUCTIONS AFTER THORACIC/LUMBAR FUSIONS 1. You may walk to your tolerance. It is good exercise for your legs and back. Expect some back and intermittent leg aches and pains. 2. You may perform "counter-top" level activities (make a sandwich, rodger with a project, etc.). 3. No bending or lifting of more than 10 pounds or back twisting of any nature (roll like a log when turning in bed). 4. You may ride in a car for 20-30 minutes at a time. No driving until after your first visit with your doctor. 5. Frequent changes of position and restricting sitting to 30 minutes at a time will help limit the amount of back spasms and stiffness you may experience. 6. You may discontinue the use of ambulatory aids (cane, crutches, etc.) once your strength and confidence allow. 7. You may radio engineering teacher the shower and let water strike your incision when you arrive home at least once daily. Do not take a tub bath, sit in a hot tub or go into a swimming pool until after your first recheck in the office. SPECIAL CARE INSTRUCTIONS: VERY IMPORTANT TO READ AND REVIEW A. Your surgical incision has been closed with a cosmetic suture under the skin that will dissolve in about 6 weeks. In 14 days, you can use a pair of clean scissors and cut the suture that is left outside of the skin at the ends of your incision. 1. The small skin tapes can be removed 7 days after surgery if they have not fallen off by that point. 2. You may keep the wound open to air as much as possible to promote healing after post-op day number 5 unless told otherwise by your doctor. 3. If you think the wound looks like it is becoming infected (redness or worsening drainage) and/or you are experiencing fever, chill or worsening back pain and muscle spasms, contact the office so that we may evaluate you as soon as possible. B. Complications are uncommon, but please contact us if you have any signs or symptoms of: 1. wound infection (fever higher than 102.5 degrees F, redness, separation of wound, drainage, or increasing pain from the incision) 2. blood clots in legs (pain, swelling, redness and warmth in legs) 3. urinary tract infection (fever higher than 102.5 degrees F, burning upon urination or increased frequency of urination) 4. nerve problems (inability to walk on your toes or heels, numbness, loss of bowel or bladder control) 5. any other symptoms that concern you C. Please call the office at if you have any concerns or questions about your operation or recovery. D. No smoking! Smoking drastically decreases the chance of a solid fusion. E. Do not take any anti-inflammatory medications (Indocin, Advil, Motrin, Aspirin, Naprosyn, etc.) as these may inhibit the chance of a solid fusion. Tylenol is okay to take for pain. MANAGING PAIN AFTER SPINAL SURGERY 1. Narcotic medication is intended for short-term use and will be provided for surgical pain. Surgical pain usually lasts for a period of 4-6 weeks. Narcotic medication includes Percocet, Vicodin, Darvocet, Tylenol #3 or Lortab. 2. Longer-term pain is more appropriately treated with non-narcotic medication such as Tylenol ES. 3. Muscle spasm is not appropriately treated with narcotics. Muscle relaxers such as Soma, Flexeril or Skelaxin can be used along with Tylenol ES. 4. Remember that we all live with some "aches and pains". This is not unusual or uncommon after an injury or as we get older. a. Back pain is expected and may include muscle spasms for 4 to 6 weeks after surgery. The pain should gradually improve. If the pain worsens for no apparent reason, please contact the office. b. Intermittent leg pain may also be experienced and should not be concerned about unless it worsens for no apparent reason. If so, please contact the office. 5. We will provide appropriate medication within the normal guidelines of their prescribed use. We will also be very cautious and aware of potential abuse and extended duration of patients' medication needs. a. Pain medications are for your comfort and to assist with sleep and rest so that the tissue can heal. They are not provided in order to return to normal activity and should not be used through the day. To do so or worsening pain at night can result from ongoing tissue damage and development of tolerance to the prescribed medicine. 6. Please allow 2-3 days to process refills. Prescriptions will not be mailed but must be picked up at the office. FOLLOW UP VISIT: Keep your scheduled follow-up appointment. Any questions, please call the office at . Addtl Senior Counsel Provider Instructions: Instructions from hospitalist: You are Hgb A1c was checked and found to be 7.8 which is increased from your previous of 6.9 in October 2020. This is the lab that monitors the control of your diabetes. Increase metformin to 500mg twice daily. A follow-up appointment will be arranged with your PCP in 2 to 3 weeks. You will receive a call from the office with your appointment date and time. Pending Studies at Discharge: No Stand-Alone Forms: My [facility], Smoking Cessation Medications and DC Order Prescriptions: New tramadol 50 mg tablet 50 mg PO Q6H PRN (Reason: pain, moderate) Qty: 30 RF: 0 oxycodone 5 mg tablet 5 mg PO Q6H PRN (Reason: pain, severe) Qty: 30 RF: 0 Continued atorvastatin 10 mg Tablet 10 mg PO QPM RF: 0 calcium 500 mg Tablet 500 mg PO QAM RF: 0 omega-3 fatty acids Capsule 1,000 mg PO QAM RF: 0 omeprazole 20 mg Tablet,Delayed Release (Dr/Ec) 20 mg PO QAM RF: 0 biotin 1 mg Capsule 1 mg PO QAM RF: 0 albuterol sulfate 90 mcg/actuation Hfa Aerosol Inhaler 1 inh INHALATION QID PRN (Reason: sob) RF: 0 fluticasone propion-salmeterol [Wixela Inhub] 100-50 mcg/dose blister with device 1 inh INHALATION BID RF: 0 oxycodone-acetaminophen [Percocet] 5-325 mg tablet 1 tab PO Q8H PRN (Reason: pain) Qty: 14 RF: 0 Changed metformin 500 mg Tablet 500 mg PO BID Qty: 0 RF: 0 Discharge Orders: Discharge Order (Routine); Ordered 03/07/21 Ordered By: Kaleb Larson/Other Patient Handouts: Managing Type 2 Diabetes Admission Data Admit Date/Time: 03/05/21 07:33 Attending Provider: Kaleb Chase Admit Provider: Kaleb Chase Primary Care Provider: Jose Israel Other Providers: Na Chun ; Irene Jimenes I.
--- NOTE | 2021-03-07 11:38 | Hospitalist Progress Note ---
Date of Service March 07, 2021 Assessment & Plan (1) Neurogenic claudication due to lumbar spinal stenosis: Plan: - POD#2 L2-L3 decompression fusion, L3-L4 hardware removal by Dr. Chase - activity and wound care orders as per ortho - pain control with bowel regimen - Preop Hgb 15.0 --> 12.8 today. Likely due to surgery related blood loss (2) DM type 2 (diabetes mellitus, type 2): Plan: -Hgb A1c 6.9 10/2020 --> 7.8 -Hold oral agents while hospitalized -Due to increased A1c, recommend increasing Metformin to 500 mg twice daily at discharge. Patient to follow-up with PCP in 2 to 3 weeks. Was seen by poundmaster as well (3) Asthma: Plan: -No signs of acute exacerbation -Continue home inhalers (4) DVT prophylaxis: Plan: -TEDs/SCDs as per spine Ortho Can be discharged per Primary Surgical team Admission and Anticipated Discharge Date Admission Date: March 05, 2021 Subjective Patient seen and examined Reports surgical site pain is well controlled No paresthesias Denied any complaints today Physical Exam Constitutional: + well hydrated; no acute distress Eyes: PERRL, conjunctivae normal, anicteric sclerae ENMT: external ear and nose normal, oropharynx normal Respiratory: normal respiratory effort, lungs clear to auscultation Cardiovascular: Rate/Rhythm: regular rate and regular rhythm S1 S2 Gastrointestinal (Abdomen): normal bowel sounds, soft, nontender, no hepatosplenomegaly Musculoskeletal: Clean dressing over surgical site with PANFILO drain with serosanguinous fluid Neurologic: PERRL, EOMI, accommodation nl, no face palsy, no dysarthria Psychiatric: A+Ox3, euthymic affect Results & Data Results & Data ([facility]) Vital Signs (Past 12 Hours) Vital Signs Temp Pulse Pulse Resp BP Pulse Ox 03/07/21 07:48 36.8 C 68 16 130/70 98 03/07/21 06:12 36.9 C 61 16 145/71 H 94 03/07/21 02:30 36.8 C 60 17 157/74 H 95 Laboratory Results Abnormal lab results 03/06/21 03/06/21 03/06/21 Range/Units 12:44 17:10 20:52 POC Glucose 156 H 210 H 194 H (70-99) mg/dl 12/25/21 Range/Units 08:04 POC Glucose 112 H (70-99) mg/dl
== END 2021-03-07 15:19 | disposition home or self-care (01) | DRG 455 ==
LOC: ASU 06:12 → PACUINP 09:44 → 3N 13:57
DX: M48.062 Spinal stenosis, lumbar region with neurogenic claudication; J45.909 Unspecified asthma, uncomplicated; Z79.84 Long term (current) use of oral hypoglycemic drugs; Z20.822 Contact with and (suspected) exposure to COVID-19; E11.9 Type 2 diabetes mellitus without complications; E78.5 Hyperlipidemia, unspecified; Z87.891 Personal history of nicotine dependence; K21.9 Gastro-esophageal reflux disease without esophagitis; Z88.2 Allergy status to sulfonamides